=== PATIENT | female | born 1965 | race Caucasian/White ===

== ENCOUNTER → 2019-07-19 | Outpatient (CLI) | payer OTHER ==
--- NOTE | 2019-07-19 15:44 | RAD ---
EXAM: ULTRASOUND-GUIDED THYROID FINE-NEEDLE ASPIRATION. HISTORY: Thyroid nodule. Ultrasound-guided biopsy is requested. FINDINGS: The procedure along with its risks and benefits were explained to the patient. They agreed to proceed. A timeout procedure was performed. Sonographic images of the thyroid gland were obtained. The hypoechoic solid target nodule in the left thyroid lobe straddling the isthmus was adequately visualized for biopsy. The overlying skin was sterilely prepped and infiltrated with 1% lidocaine for local anesthesia. Under ultrasound guidance, 4 aspirates were obtained using 25-gauge needles. These were hand delivered to pathology who determined them adequate for diagnosis. A sterile dressing was placed. There were no immediate complications. IMPRESSION: 1. Successful ultrasound-guided fine-needle aspiration of the left lobe and isthmic thyroid nodule. Electronically signed by: Efrain James MD (07/19/2019 3:42 PM) [id number]
--- NOTE | 2019-07-24 14:06 | PATHOLOGY ---
Note [facility] Accession Number: [id number] TESTS RESULT FLAG UNITS REF RANGE LAB Clinician Provided Cytology Information No. of containers..01 Other (Miscellaneous) Source: LEFT INFER THYROID DIAGNOSIS: LEFT INFER THYROID BENIGN BETHESDA CATEGORY II. CLUSTERS OF FOLLICULAR EPITHELIAL CELLS, COLLOID, AND BLOOD IDENTIFIED. FINDINGS ARE COMPATIBLE WITH AN ADENOMATOUS NODULE. THIS INTERPRETATION INCLUDES EVALUATION OF A CELL BLOCK. Pathologist ICD10: 02 C73 Signed out by: Danilo López MD, Pathologist NPI- [id number] Performed by: Nery Henderson, Technician Trainee ([facility] [place]) Gross description: 30ML, CLEAR RED, 2F 2DQ 2HE /LCS 07/19/2019 2111 Local FLAG LEGEND: L-Low Normal,H-High Normal,LL-Alert Low,HH-Alert High <-Panic Low,>-Panic High,A-Abnormal,AA-Critical Abnormal Performed at: [facility] [address] [place] [address] Sidney Lomax MD, [address] [facility] [address] [place] [address] Danilo López MD, Specimen Comment: A courtesy copy of this report has been sent to [phone], [phone] Specimen Comment: [id number], Specimen Comment: [id number] Specimen Comment: Report sent to ,DR CORONA / DR GUERRA Specimen Comment: A duplicate report has been generated due to demographic updates. Performed at: [address], [place], [place] [id number] MD Sidney Lomax MD Phone: [phone]
== END | disposition home or self-care (01) ==
LOC: US 13:06 → EDUNIT# 13:45
PROVIDERS: ATTEND Surgery
DX: E04.1 Nontoxic single thyroid nodule (principal); C73 Malignant neoplasm of thyroid gland
CPT/HCPCS: 10005; 60300; 76942; 88173; 88305